=== PATIENT | female | born 1935 | race Caucasian/White ===

== ENCOUNTER 2017-11-22 07:15 | Day surgery (SDC) | payer OTHER ==
[~2017-11-22 07:15] MED LIST: AMBIEN5 MG PO; NABUMETONE500 MG PO; PERCOCET 5/3251 TAB PO; XANAX XR0.5 MG PO; XANAX0.25 MG PO
== END 2017-11-22 13:35 | disposition home or self-care (01) ==
LOC: AMB-ENDOS 07:15 → CIR.AMB 12:00 → AMB-ENDOS 13:35
DX: C18.0 Malignant neoplasm of cecum (principal); D12.3 Benign neoplasm of transverse colon; D12.5 Benign neoplasm of sigmoid colon

== ENCOUNTER 2017-12-21 13:30 | Inpatient (IN) | payer OTHER ==
[2017-12-21] MEDS ORDERED: COZAAR50 MG PO (15:34)
[2018-01-03] MEDS ORDERED: TYLENOL ARTHRI650 MG PO (07:47)
[2018-01-03] MEDS ORDERED: OMEPRAZOLE20 MG PO (07:48)
[2018-01-03] MEDS ORDERED: INTESTINEX680 M1 PO (07:48)
== END 2018-01-03 09:42 | disposition home or self-care (01) | DRG 331 ==
LOC: SURG 13:30 → O/R 12-28 06:56 → SURH 12-28 06:56
PROVIDERS: Surgery
PROC: 07TC4ZZ Resection of Pelvis Lymphatic, Percutaneous Endoscopic Approach (ICD-10-PCS; 2017-12-28)
PROC: 0DTF4ZZ Resection of Right Large Intestine, Percutaneous Endoscopic Approach (ICD-10-PCS; principal; 2017-12-28 07:00)
DX: C18.0 Malignant neoplasm of cecum (principal); R59.0 Localized enlarged lymph nodes

== ENCOUNTER 2018-09-19 05:41 | Day surgery (SDC) | payer OTHER ==
[~2018-09-19 05:41] MED LIST changes: +COZAAR50 MG PO; +INTESTINEX680 M1 PO; +OMEPRAZOLE20 MG PO; +TYLENOL ARTHRI650 MG PO
== END 2018-09-19 11:25 | disposition home or self-care (01) ==
LOC: AMB-ENDOS 05:41
DX: C18.0 Malignant neoplasm of cecum (principal)

== ENCOUNTER 2018-11-23 05:40 | Day surgery (SDC) | payer OTHER ==
[2018-11-23] MEDS ORDERED: ULTRACET PO (10:00)
[2018-11-23] MEDS ORDERED: NEURONTIN300 MG PO (10:01)
[2018-11-23] MEDS ORDERED: COLACE100 MG PO (10:01)
== END 2018-11-23 11:20 | disposition home or self-care (01) ==
LOC: CIR.AMB 05:40
DX: K43.0 Incisional hernia with obstruction, without gangrene (principal)

== ENCOUNTER 2018-12-02 14:58 | Inpatient (IN) | payer OTHER ==
[~2018-12-02] VITALS: Ht 157.5 cm; Wt 59.0 kg
[~2018-12-02 14:58] MED LIST changes: +COLACE100 MG PO; +NEURONTIN300 MG PO; +ULTRACET PO
== END 2018-12-06 10:47 | disposition home or self-care (01) | DRG 375 ==
LOC: ER 14:58 → MEDJ 12-03 10:31
PROVIDERS: ADMIT Internal Medicine Cardiovascular Disease
PROC: 30233N1 Transfusion of Nonautologous Red Blood Cells into Peripheral Vein, Percutaneous Approach (ICD-10-PCS; principal; 2018-12-02)
DX: C18.0 Malignant neoplasm of cecum (principal); K92.1 Melena; D62 Acute posthemorrhagic anemia; K43.2 Incisional hernia without obstruction or gangrene; K44.9 Diaphragmatic hernia without obstruction or gangrene; K21.9 Gastro-esophageal reflux disease without esophagitis